=== PATIENT | female | born 1945 | race Caucasian/White ===

== ENCOUNTER → 2016-11-15 | Outpatient (CLI) | payer BC, OTHER ==
[~2016-11-15] MED LIST: 3N1 COMMODE MC; ASPI-781 PO; HYDR-906 PO; PANT40TA4 PO; TRAM50TA2 PO; WALK1EAC23 MC
--- NOTE | 2016-11-15 14:26 | RADRPT ---
PROCEDURE: XR Right hip and pelvis. CLINICAL INDICATION: Right hip pain. Pelvic pain. Postop. TECHNIQUE: Two views. Frontal pelvis and frontal right hip. COMPARISON: 09/28/2016. FINDINGS: There is no fracture or dislocation. Right lateral surgical drain has been removed. There is a right hip total arthroplasty which appears satisfactory. There is a left hip total arthroplasty which appears satisfactory. There is no lytic or blastic lesion. The lower lumbar spine is unremarkable. IMPRESSION: 1. Satisfactory postoperative appearance of both hips. 2. Bilateral surgical drain removed. RPTAT: QQ .Daniel Lyons MD, MD Date Time Electronically viewed and signed by .Daniel Lyons MD, MD on 11/15/2016 14:25 .R/
== END | disposition home or self-care (01) ==
LOC: HKI 10:05
PROVIDERS: ATTEND Orthopaedic Surgery
DX: Z47.1 Aftercare following joint replacement surgery (principal); M16.11 Unilateral primary osteoarthritis, right hip; M17.11 Unilateral primary osteoarthritis, right knee; M25.561 Pain in right knee; Z96.641 Presence of right artificial hip joint
CPT/HCPCS: 73502; G0463

== ENCOUNTER → 2016-11-22 | Outpatient (CLI) | payer BC, OTHER ==
--- NOTE | 2016-11-22 13:18 | HKNOTE ---
DATE OF SERVICE: 11/22/2016 ADDENDUM: Addendum to dictation #[id number]. PROCEDURE NOTE: The procedure was fully explained to the patient and informed consent was obtained prior to the start of the procedure. The area was prepped and draped in sterile fashion using Betadine. Ethyl chloride was used in the superolateral aspect to anesthetize the right knee. Monovisc 4 mL on a 22- gauge needle was then inserted into the superolateral portion of the right knee and injected successfully. The patient tolerated the procedure well. A sterile bandage was then applied. All questions and concerns were addressed at the time of procedure. Dictated By: SCARLET MARCUS/BENTLEY Conf#: [id number] DID#: [id number] MTDD
--- NOTE | 2016-11-22 13:20 | HKNOTE ---
DATE OF SERVICE: 11/22/2016 INTERVAL HISTORY: The patient presents today for a followup evaluation on her right knee. She is having persistent pain to the right knee. She understands she may need a right total knee arthroplasty at some point, but has been having Monovisc injections which have been providing her pain and providing some relief. She is here today for another injection to her right knee. PHYSICAL EXAMINATION: On examination today, she is alert and oriented x4, and in no acute distress. The right knee demonstrates no effusion. Varus and valgus forces are stable. Knee range of motion is adequate. There is no erythema or warmth and all the compartments are soft. She is neurovascularly intact distally. ASSESSMENT: Right knee osteoarthritis. PLAN: 1. Monovisc injection given to the right knee today. 2. Ice the right knee and modify activity today. 3. She will call for followup evaluation. The patient understands if she has any complications, to return to the clinic sooner. Dictated By: SCARLET KHAN for TAMERA MARCUS/BENTLEY Conf#: [id number] DID#: [id number] MTDD
== END | disposition home or self-care (01) ==
LOC: HKI 11:06
PROVIDERS: ATTEND Orthopaedic Surgery
DX: M17.11 Unilateral primary osteoarthritis, right knee (principal)
CPT/HCPCS: 20610; J7327